=== PATIENT | female | born 1980 | race Caucasian/White ===

== ENCOUNTER 2018-04-08 11:34 | Emergency (ER) | payer SELFPAY ==
--- NOTE | 2018-04-08 12:32 | PDOC ---
Rapid Medical Evaluation Time Seen by Provider: 04/08/18 12:30 Medical Evaluation: Allergies Allergy/AdvReac Type Severity Reaction Status Date / Time No Known Drug Allergies Allergy Verified 12/03/13 16:16 04/08/18 12:30 I have performed a brief in-person evaluation of this patient. The patient presents with a chief complaint of: vaginal bleeding . , 6 weeks . Patient reports spotting since yesterday with lower abdomen and lower back pain Pertinent physical exam findings: NAD even and unlabored breathing mild lower abdominal tenderness I have ordered the following: Bhc, type and screen and cbc The patient will proceed to the ED for further evaluation.
[2018-04-08 12:33] VITALS: BP 139/74; PULSE 78; TEMP 98.2; BMI 26.4
[2018-04-08 14:26] LABS: BASO % 0.4 % (0-2.0); EOS % 1.4 % (0-4.5); HEMATOCRIT 38.2 % (32.4-45.2); HEMOGLOBIN 13.4 GM/dL (10.7-15.3); LYMPH % 31.2 % (8-40); MCH 31.4 pg (25.7-33.7); MCHC 35.2 g/dl (32.0-36.0); MEAN CELL VOLUME 89.3 fl (80-96); MEAN PLT VOLUME 7.7 fl (7.5-11.1); MONO % 5.5 % (3.8-10.2); NEUT % 61.5 % (42.8-82.8); PLATELET COUNT 289 K/MM3 (134-434); RBC 4.27 M/mm3 (3.60-5.2); RDW 13.6 % (11.6-15.6); WHITE BLOOD COUNT 8.3 K/mm3 (4.0-10.0)
[2018-04-08 14:31] LABS: URINE APPEARANCE CLEAR; URINE BILIRUBIN NEGATIVE (<2.0 mg/dL); URINE COLOR STRAW; URINE GLUCOSE (UA) NEGATIVE (NEGATIVE); URINE KETONE NEGATIVE (NEGATIVE); URINE LEUK ESTERASE NEGATIVE (NEGATIVE); URINE NITRITE NEGATIVE (NEGATIVE); URINE PROTEIN NEGATIVE (NEGATIVE); URINE UROBILINOGEN NEGATIVE mg/dL (0.2-1.0)
[2018-04-08 15:11] LABS: HCG,QUALITATIVE URINE POSITIVE
[2018-04-08 15:35] LABS: EPI CELLS RARE /HPF (FEW)
--- NOTE | 2018-04-08 15:41 | PDOC ---
History of Present Illness - General Chief Complaint: Vaginal Bleeding Stated Complaint: VAGINAL BLEEDING 6 WEEKS Time Seen by Provider: 04/08/18 12:30 History Source: Patient Exam Limitations: No Limitations - History of Present Illness Travel History: No Initial Comments: 04/08/18 15:16 37 y/o female currently 6 weeks presents to ED with complaints of vaginal spotting upon wiping since yesterday. Patient also been of mild lower abdominal cramping which he states when he to her back yesterday but denies presently. Patient states is not had an ultrasound yet this denies any vaginal discharge prior to the spotting, fever, chills, nausea or urinary complaints. Timing/Duration: reports: intermittent Quality: reports: mild, cramping Abdominal Pain Onset Location: reports: suprapubic Pain Radiation: reports: back Activities at Onset: reports: none Aggravating Factors: improves with: None Alleviating Factors: improves with: None Past History - Travel Traveled outside of the country in the last 30 days: No Close contact w/someone who was outside of country & ill: No - Past Medical History Allergies/Adverse Reactions: Allergies Allergy/AdvReac Type Severity Reaction Status Date / Time No Known Drug Allergies Allergy Verified 04/08/18 12:31 Home Medications: Ambulatory Orders Albuterol Sulfate Inhaler - [Ventolin HFA Inhaler -] 2 inh IH Q6H #1 inh Anemia: No Asthma: No Cancer: No Cardiac Disorders: No CVA: No COPD: No CHF: No Dementia: No Diabetes: No GI Disorders: No Disorders: No HTN: No Hypercholesterolemia: No Liver Disease: No Seizures: No Thyroid Disease: No - Surgical History Abdominal Surgery: No Appendectomy: No Cardiac Surgery: No Cholecystectomy: No Lung Surgery: No Neurologic Surgery: No Orthopedic Surgery: No - Immunization History Immunization Up to Date: Yes - Suicide/Smoking/Psychosocial Hx Smoking History: Never smoked Hx Alcohol Use: No Drug/Substance Use Hx: No Substance Use Type: None Hx Substance Use Treatment: No Patient Lives Alone: No Lives with/in: spouse/SO Review of Systems - Review of Systems Able to Perform ROS?: Yes Constitutional: No: Symptoms Reported HEENTM: No: Symptoms Reported Respiratory: No: Symptoms reported ABD/GI: Yes: Abdominal cramping : Yes: Discharge (vaginal spotting) Musculoskeletal: No: Symptoms Reported Integumentary: No: Symptoms Reported Neurological: No: Symptoms reported Endocrine: No: Symptoms Reported Hematologic/Lymphatic: No: Symptoms Reported *Physical Exam - Vital Signs Last Vital Signs Temp Pulse Resp BP Pulse Ox 98.2 F 78 17 139/74 100 04/08/18 12:31 04/08/18 12:31 04/08/18 12:31 04/08/18 12:31 04/08/18 12:31 - Physical Exam General Appearance: Yes: Nourished, Appropriately Dressed. No: Apparent Distress HEENT: positive: EOMI, DARSHANA, TMs Normal, Pharynx Normal. negative: Pale Conjunctivae Neck: positive: Supple Respiratory/Chest: positive: Lungs Clear, Normal Breath Sounds. negative: Respiratory Distress, Accessory Muscle Use Cardiovascular: positive: Regular Rhythm, Regular Rate. negative: Murmur Female Pelvic Exam: positive: cervical os closed. negative: adnexal tenderness , vaginal bleeding Gastrointestinal/Abdominal: positive: Normal Bowel Sounds, Soft. negative: Distended, Tenderness Extremity: positive: Normal Capillary Refill. negative: Pedal Edema Integumentary: positive: Normal Color, Warm, Moist Neurologic: positive: Motor Strength 5/5 ( ambulatory) Moderate Sedation - Procedure Monitoring Vital Signs: Procedure Monitoring Vital Signs Temperature 98.2 F 04/08/18 12:31 Pulse Rate 78 04/08/18 12:31 Respiratory Rate 17 04/08/18 12:31 Blood Pressure 139/74 04/08/18 12:31 O2 Sat by Pulse Oximetry (%) 100 04/08/18 12:31 ED Treatment Course - LABORATORY CBC & Chemistry Diagram: 04/08/18 14:09 - ADDITIONAL ORDERS Additional order review: Laboratory Results 04/08/18 04/08/18 14:00 14:00 Beta HCG, Quant 13278.8 Urine Color Straw Urine Appearance Clear Urine pH 5.0 Ur Specific [place] 1.008 L Urine Protein Negative Urine Glucose (UA) Negative Urine Ketones Negative Urine Blood 1+ H Urine Nitrite Negative Urine Bilirubin Negative Urine Urobilinogen Negative Ur Leukocyte Esterase Negative Urine HCG, Qual Positive 04/08/18 14:09 RBC 4.27 MCV 89.3 MCHC 35.2 RDW 13.6 MPV 7.7 Neutrophils % 61.5 D Lymphocytes % 31.2 D Monocytes % 5.5 Eosinophils % 1.4 Basophils % 0.4 - RADIOLOGY Radiology Studies Ordered: Category Date Time Status <14WKS US [US] Stat Ultrasound 04/08/18 13:48 Ordered TRANSVAGINAL US PREG [US] Stat Ultrasound 04/08/18 15:28 Ordered Medical Decision Making - Medical Decision Making 04/08/18 14:45 Chief complaint: Vaginal spotting upon wiping 2 since yesterday, lower abdominal cramping yesterday after urinating but denies presently approximately 6 weeks based on LMP Exam: No abdominal tenderness no CVA tenderness. Vital stable Plan: Labs, urine, ultrasound ordered 04/08/18 15:47 Laboratory Tests 04/08/18 04/08/18 04/08/18 14:00 14:00 14:00 WBC Hgb Hct Absolute Neuts (auto) Beta HCG, Quant 35259.8 Urine Color Straw Urine Appearance Clear Urine pH 5.0 Ur Specific [place] 1.008 L Urine Blood 1+ H Urine Nitrite Negative Urine Bilirubin Negative Ur Leukocyte Esterase Negative Urine HCG, Qual Positive Blood Type Pending Antibody Screen Pending 04/08/18 14:09 WBC 8.3 Hgb 13.4 Hct 38.2 Absolute Neuts (auto) 5.1 Beta HCG, Quant Urine Color Urine Appearance Urine pH Ur Specific [place] Urine Blood Urine Nitrite Urine Bilirubin Ur Leukocyte Esterase Urine HCG, Qual Blood Type Antibody Screen 04/08/18 16:28 Laboratory Tests 04/08/18 14:00 Blood Type B POSITIVE Antibody Screen Negative Ultrasound shows single live intrauterine with estimated sonographic gestational age of 5 weeks 6 days. The heart rate of 1 35 bpm. There is a small Jenniffer complex cyst in the left ovary measuring 1 cm may represent a hemorrhagic corpus luteum cyst. Follow-up as needed. *DC/Admit/Observation/Transfer Diagnosis at time of Disposition: Vaginal bleeding during - Discharge Dispostion Disposition: HOME Condition at time of disposition: Good - Referrals - Patient Instructions Printed Discharge Instructions: DI for Threatened Additional Instructions: Please continue taking vitamins as prescribed. Please up with her POLISHING MACHINE OPERATOR and take copy of ultrasound report with you. If symptoms worsen including severe abdominal pain or heavy vaginal bleeding you may return to the ED. - Post Discharge Activity
== END 2018-04-08 16:34 | disposition home or self-care (01) ==
LOC: JER 11:34
DX: O26.891 Other specified pregnancy related conditions, first trimester (principal); O20.8 Other hemorrhage in early pregnancy; Z3A.01 Less than 8 weeks gestation of pregnancy
CPT/HCPCS: 36415; 76801-TC; 76817-TC; 81003; 81015; 84702; 84703; 85025; 86850; 86900; 86901; 87086; 99281-25

== ENCOUNTER 2018-11-21 09:06 | Inpatient (IN) | payer OTHER ==
[2018-11-21] MEDS ORDERED: CITRIC ACID/SODIUM CITRATE 30 ML UNIT-DOSE CUP PO ONE (11:08)
[2018-11-21] MEDS ORDERED: ELECTROLYTE-148 SOLN 500 ML IV ONE (11:08)
[2018-11-21] MEDS ORDERED: ELECTROLYTE-148 SOLN 1,000 ML IV SCH (11:15)
--- NOTE | 2018-11-21 11:22 | HP ---
Past Medical History - Primary Care Physician PCP:: Luz Elena Loomis - Admission Chief Complaint: 38 yrs 38.6/7 weeks , previous c/s c/o bleeding, onset of UC since 4.30 AM , requests for repeat c/s History of Present Illness: care at [address] [place] [address] . wt gain 20 lbs panel 04/23/18 : B Pos , Hiv nr, Hep Bsag neg , Rpr nr, Rubella iimune, Sickle neg , pap 04/23 Nilm, hpv neg gc/ct neg 08/20/18 Quantiferon neg , , 1 hr gct 125, rpr nr 11/05/18 cbc h/h 12.3/36.9, plt 249 , HIV nr, gc/ct/neg, Gbs neg pt had refused genetic counselling referred due to LISET ayoub done for growth NT screen , & sequential neg last sono ; 10/30/18 sliup ,35.5 WKS vx, post placenta, bria 12.3, efw 6'6' History Source: Patient, Medical Record Limitations to Obtaining History: No Limitations - Past Medical History STOCKHOLDER: No: CVA, Migraine Cardiovascular: No: AFIB, HTN, Murmur Pulmonary: No: Asthma Renal/: No: UTI ...: 3 ...Para: 1 (p lftc/s 12/07/10 7'5', ? failed induction boy ) ...Term: 1 ...: 0 ...Spon : 0 ...Induced : 1 ...Multiple Gestation: 0 ...LMP: 02/22/18 ... Weeks Gestation by Dates: 38.6 ...EDC by Dates: 11/29/18 ...EDC by Sono: 11/29/18 Infectious Disease: No: AIDS, C-Diff, Herpes Zoster, HIV, MRSA, STD's, Tuberculosis, VREF Psych: No: Addictions, Anxiety, Bipolar, Depression, Panic, Psychosis, Schizophrenia, Other - Past Surgical History Past Surgical History: Yes: (12/2010) Hx Myomectomy: No Hx Transabdominal Cerclage: No - Smoking History Smoking history: Never smoked Have you smoked in the past 12 months: No - Alcohol/Substance Use Hx Alcohol Use: No History of Substance Use: reports: None Home Medications - Allergies Allergies/Adverse Reactions: Allergies Allergy/AdvReac Type Severity Reaction Status Date / Time No Known Drug Allergies Allergy Verified 11/21/18 10:16 - Home Medications Home Medications: Ambulatory Orders Ferrous Sulfate [Feosol] 325 mg PO DAILY 11/21/18 Pnv No.95/Ferrous Fum/Folic AC [ Vitamin Tablet] 1 each PO DAILY Physical Exam - Maternity Vital Signs: Vital Signs Temperature 98.2 F 11/21/18 10:20 Pulse Rate 70 11/21/18 10:20 Respiratory Rate 18 11/21/18 10:20 Blood Pressure 141/81 11/21/18 10:20 O2 Sat by Pulse Oximetry (%) Constitutional: Yes: Well Nourished Eyes: Yes: WNL HENT: Yes: WNL Neck: Yes: WNL Cardiovascular: Yes: WNL Breast(s): Yes: WNL - Abdominal Exam/OB Fundal Height: 38 Number of Fetuses: Single Presentation: Vertex Contractions: Yes Regularity: Regular (1-3 min) Intensity: Moderate Monitor Mode: External Heart Rate (range): 155 Heart Rate Location: [facility] Category: I Accelerations: Uniform Decelerations: None - Vaginal Exam/OB Vaginal Bleediing: Yes Speculum Exam: No Dilatation (cm): FT Effacement (%): 50 Amniotic Membrane Status: Intact Presentation: Vertex/Position Station: -3 (-3/-4) - Physical Exam Musculoskeletal: Yes: WNL Extremities: Yes: WNL. No: Calf Tenderness Edema: Yes Edema: LLE: 1+, RLE: 1+ Integumentary: Yes: WNL, Incision (pfannesteil incision) Deep Tendon Reflex Grade: Normal +2 ...Motor Strength: WNL Psychiatric: Yes: WNL, Alert, Oriented - Labs Lab Results: Laboratory Tests 11/21/18 11/21/18 11/21/18 11:20 11:20 11:20 WBC 8.4 Hgb 12.9 Hct 38.0 MCV 90.2 MCH 30.7 MCHC 34.0 RDW 14.7 Plt Count 228 D MPV 8.3 Absolute Neuts (auto) 6.2 Neutrophils % 73.6 Lymphocytes % 20.0 D Monocytes % 5.8 Eosinophils % 0.4 Basophils % 0.2 PT with INR 10.30 INR 0.87 PTT (Actin FS) 29.3 Sodium 137 Potassium 5.0 Chloride 106 Carbon Dioxide 23 Anion Gap 8 BUN 12.0 Creatinine 0.6 Random Glucose 76 Calcium 8.9 Blood Type 11/21/18 11:20 WBC Hgb Hct MCV MCH MCHC RDW Plt Count MPV Absolute Neuts (auto) Neutrophils % Lymphocytes % Monocytes % Eosinophils % Basophils % PT with INR INR PTT (Actin FS) Sodium Potassium Chloride Carbon Dioxide Anion Gap BUN Creatinine Random Glucose Calcium Blood Type B POSITIVE Hemorrhage Risk Assessment - Risk Factors Medium Risk Factors: Yes: Prior , uterine surgery,or multiple laparotomies Risk Score: 1 Risk Level: Medium Risk Problem List - Problems (1) with 38 completed weeks gestation Code(s): Z3A.38 - 38 WEEKS GESTATION OF (2) Previous section Code(s): Z98.891 - HISTORY OF UTERINE SCAR FROM PREVIOUS SURGERY (3) Labor established Code(s): TEK7964 - (4) First stage of labor established Code(s): TPH8009 - (5) AMA (advanced maternal age) multigravida 35+ Code(s): O09.529 - SUPERVISION OF ELDERLY MULTIGRAVIDA, UNSPECIFIED TRIMESTER Assessment/Plan 38 yrs 38.6 weeks in early labor, bleeding light , gbs neg, requests for repeat c/sec . Plan Repeat LFTC/Section
[2018-11-21 11:46] LABS: BASO % 0.2 % (0-2.0); EOS % 0.4 % (0-4.5); HEMOGLOBIN 12.9 GM/dL (10.7-15.3); MCH 30.7 pg (25.7-33.7); MEAN CELL VOLUME 90.2 fl (80-96); MEAN PLT VOLUME 8.3 fl (7.5-11.1); MONO % 5.8 % (3.8-10.2); NEUT % 73.6 % (42.8-82.8); PLATELET COUNT 228 K/MM3 (134-434); RBC 4.21 M/mm3 (3.60-5.2); RDW 14.7 % (11.6-15.6); WHITE BLOOD COUNT 8.4 K/mm3 (4.0-10.0)
[2018-11-21] MEDS ORDERED: OXYTOCIN 20 UNITS in 0.9% NS 20 UNIT/1,000 ML INFUS.BAG IV ONE ×2 (11:58→15:19)
[2018-11-21 12:02] LABS: CALCIUM 8.9 mg/dL (8.5-10.1); CREATININE 0.6 mg/dL (0.55-1.3)
[2018-11-21] MEDS ORDERED: ceFAZolin SODIUM 1 GM VIAL ONE (12:05)
[2018-11-21 12:28] LABS: INR 0.87 (0.83-1.09); PROTHROMBIN TIME (PATIENT) 10.3 SEC (9.7-13.0)
[2018-11-21] MEDS ORDERED: ONDANSETRON 4 MG/2 ML VIAL IVPUSH PRN (12:30)
[2018-11-21 12:31] LABS: ACTIVATED PTT 29.3 SECONDS (25.2-36.5)
[2018-11-21] MEDS ORDERED: METHYLERGONOVINE MALEATE 0.2 MG/1 ML AMP IM PRN (13:05)
[2018-11-21] MEDS ORDERED: oxyCODONE HCL 5 MG TABLET PO PRN (13:05)
[2018-11-21] MEDS ORDERED: IBUPROFEN 800 MG/8 ML IJ IVPB PRN (13:05)
[2018-11-21] MEDS ORDERED: OXYTOCIN 20 UNITS in 0.9% NS 20 UNIT/1,000 ML INFUS.BAG IV SCH (13:15)
--- NOTE | 2018-11-21 13:16 | PN ---
Delivery - Delivery Section: Repeat, Low Flap Transverse Type of Anesthesia: Spinal EBL (cc): 600 (100) Delivery, Single - Stages of Labor Date 1st Stage Initiatied: 11/21/18 Time 1st Stage Initiated: 04:30 Date of Delivery: 11/21/18 Time of Delivery: 12: Date Placenta Delivered: 11/21/18 Time Placenta Delivered: : Placenta: Yes: Manual Removal, Uterine Exploration - Condition of Cutter Operator Brick/Form Tamper Operator Present: Yes Name: Gladys Montgomery Infant Gender: Female (meconium medium) Weight: 7 lb 4 oz Position: Right, OT Total Hours ROM (Hrs/Mins): 2 min - 1 Minute Total Score: 9 5 Minutes Total Score: 9 - Feeding Plan Initial Plan: Elected not to breastfeed exclusively throughout hospitalization Remarks - Remarks Remarks: Indication 38.6/7 weeks in labor , previous c/s , requests repeat c/s 38 yrs , , gbs neg . pnc at , [facility] Intraop course uneventful 2 gm Iv ancef given
--- NOTE | 2018-11-21 13:22 | OP ---
Operative Note - Note: Operative Date: 11/21/18 Pre-Operative Diagnosis: 38.6/7 weeks ,in labor , previous c/s ,requests repeat c/s Operation: Repeat LFTC/Section Findings: tob 12.19 PM , baby Girl, Rot position, 9/9 , 7'4'wt, 19"ht both tubes & ovaries normal Surgeon: Luz Elena Loomis Visual Inspector: Tan Johnson Anesthesiologist/DISPATCHER MOTOR VEHICLE: Verna Washburn Anesthesia: Spinal Specimens Removed: cord segment for blood gas. cord blood. placenta Estimated Blood Loss (mls): 600 Drains, Volume Out (mls): 100 (katlyn color, collins output) Fluid Volume Replaced (mls): 1,000 (2gm iv Ancef ) Operative Report Dictated: Yes
--- NOTE | 2018-11-21 14:14 | OP ---
DATE OF OPERATION: 11/21/2018 PREOPERATIVE DIAGNOSIS: At 38-6/7 weeks, in labor, previous section, requests repeat section. OPERATION DONE: Repeat low-flap transverse section. POSTOPERATIVE DIAGNOSIS: At 38-6/7 weeks, in labor, previous section, requests repeat section. Meconium stained Amniotic fluid . SURGEON: Luz Elena Loomis MD DRIVE AWAY DRIVER: BETTY Galvez ANESTHESIOLOGIST: Verna Washburn MD ANESTHESIA: Spinal. RESOURCE MANAGEMENT SPECIALIST: Gladys Montgomery MD FINDINGS: This is a 38-year-old, 3, para 1011, with onset of labor since 4:30, presents with generalized bleeding noted and patient is sebastien between 1 to 3 minutes regularly, fingertip, and station -3 to -4, and patient requests for repeat section. Postoperatively, meconium fluid, medium thickness of meconium; and baby girl, 7 pounds 4 ounces in weight, 9 and 9. PROCEDURE: The patient was taken to the operating room table. She was given spinal anesthesia prior to that. Chacon catheter was placed. Abdomen was shaved and prepped. Patient was in supine position. Abdomen was painted and draped in usual manner. Pfannenstiel incision was made from the previous scar. Skin, subcutaneous tissue, anterior rectus sheath was incised transversely. Bleeding points were clamped and cauterized. Rectus muscle was from the rectus sheath. Parietal peritoneum was opened vertically. Lower flap parietal peritoneum was incised transversely. Bladder was pushed down. Lower uterine segment was very thin and it was incised transversely. Amniotic fluid was meconium, which was medium-thick meconium. Immediate suction was done after the delivery of the baby from ROT position, baby girl, and cord was clamped, cut. Baby was handed over to the parts salesman. Baby's weight subsequently 7 pounds 4 ounces. Cord segment was given for the cord blood gas and the cord blood was collected. Placenta was removed completely with the membranes. Uterine cavity was cleaned. Then uterine incision was closed in 2 layers, first layer was closed with single suture, second layer was closed with a Biosyn 0 continuous intermittently locking sutures taken, and then parietal peritoneum also was closed with a Biosyn 0 suture. Hemostasis was verified. Both tubes and ovaries were normal. Sponge, instrument, needle count was correct. Then closure of the abdomen was done. Parietal peritoneum was closed with Biosyn 0 suture. Muscles were approximated together with a Biosyn 0 suture. Hemostasis was checked in the upper angle of the incision. Then hemostasis was checked underneath the rectus sheath flaps. Rectus sheath was closed with a Vicryl 0 continuous suture. Hemostasis was again verified in subcutaneous tissue. The subcutaneous tissue was closed with a 2-0 Vicryl suture, continuous sutures were taken, and skin was approximated with yael. Pressure dressing was given. Blood clots were removed from the vagina. Estimated blood loss was 600 mL. Intraoperative urine output was 100 mL katlyn color. She received 2 g of IV Ancef prior to the incision. Laura [id number] MTDD
[2018-11-21] MEDS: CEFAZOLIN 1 GM/D5W 1 GM/50 ML BAG IVPB SCH (18:36)
[2018-11-22] MEDS: CEFAZOLIN 1 GM/D5W 1 GM/50 ML BAG IVPB SCH ×2 (01:26→09:16)
--- NOTE | 2018-11-22 06:27 | PN ---
Progress Note (short form) - Note Progress Note: pod 1 s/p repeat c/s, doing well , passing gas CBC, BMP 11/21/18 11:20 11/21/18 11:20 Last Vital Signs Temp Pulse Resp BP Pulse Ox 98.8 F 75 18 111/72 99 11/22/18 06:00 11/22/18 06:00 11/22/18 06:00 11/22/18 06:00 11/21/18 15:00 abdomen soft, no distension, no cva incision dry, clean no calf tenderness lochia mild plan ambulate , cbc, advance diet
[2018-11-22] MEDS: ACETAMINOPHEN 325 MG TABLET (FP) PO PRN ×2 (08:08→20:00)
[2018-11-22] MEDS: IBUPROFEN 600 MG TABLET (FP) PO PRN ×2 (08:08→20:01)
[2018-11-22] MEDS: PRENATAL VITAMINS W/ FOLIC ACID TABLET (FP) PO SCH (09:16)
[2018-11-22 09:32] LABS: BASO % 0.2 % (0-2.0); EOS % 0.6 % (0-4.5); HEMATOCRIT 37.6 % (32.4-45.2); HEMOGLOBIN 12.8 GM/dL (10.7-15.3); MCH 30.9 pg (25.7-33.7); MEAN PLT VOLUME 8.5 fl (7.5-11.1); MONO % 6.8 % (3.8-10.2); NEUT % 77.4 % (42.8-82.8); PLATELET COUNT 218 K/MM3 (134-434); RBC 4.13 M/mm3 (3.60-5.2); RDW 15.2 % (11.6-15.6); WHITE BLOOD COUNT 9.4 K/mm3 (4.0-10.0)
[2018-11-22] MEDS: ENOXAPARIN NA (PORCINE) 40 MG/0.4 ML DISP.SYRIN SQ SCH (10:38)
[2018-11-22] MEDS ORDERED: BISACODYL 10 MG SUPP.RECT RC PRN (13:05)
--- NOTE | 2018-11-22 14:40 | PN ---
Progress Note (short form) - Note Progress Note: Anesthesia POD#1 S/P Repeat under Spinal and Duramorph VSS, no N/V,pain is mild,legs fully recovered. Ana Cruz MD.
--- NOTE | 2018-11-22 14:53 | DS ---
Physical Exam-INDUSTRIAL TWISTING MACHINE OPERATOR Vital Signs: Vital Signs Temperature 98.6 F 11/22/18 09:00 Pulse Rate 78 11/22/18 09:00 Respiratory Rate 18 11/22/18 12:00 Blood Pressure 129/78 11/22/18 09:00 O2 Sat by Pulse Oximetry (%) 99 11/21/18 15:00 Selected Entries 11/24/18 07:20 Temperature 98.2 F Pulse Rate 82 Blood Pressure 137/70 Constitutional: Yes: Well Nourished Eyes: Yes: WNL HENT: Yes: WNL Neck: Yes: WNL Cardiovascular: Yes: WNL Respiratory: Yes: WNL Gastrointestinal: Yes: WNL, Normal Bowel Sounds, Other Renal/: Yes: WNL ....Post : Yes: Uterus firm (bvelow umblicus), Uterus non-tender Breast(s): Yes: WNL (not enorged , soft , BF) Musculoskeletal: Yes: WNL Extremities: Yes: WNL. No: Calf Tenderness Edema: LLE: 1+, RLE: 1+ Wound/Incision: Yes: Clean/Dry, Well Approximated, [place] Intact, Open to air. No: Draining, Reddened, Bleeding Neurological: Yes: WNL, Alert, Oriented ...Motor Strength: WNL Psychiatric: Yes: WNL, Alert, Oriented Labs: CBC, BMP 11/22/18 08:05 11/21/18 11:20 Laboratory Tests 11/24/18 06:30 WBC 8.4 RBC 3.61 Hgb 11.1 Hct 32.7 Plt Count 238 Delivery - Delivery Section: Repeat, Low Flap Transverse Type of Anesthesia: Spinal Episiotomy/Laceration: None EBL (cc): 600 Delivery, Single - Stages of Labor Date 1st Stage Initiatied: 11/21/18 Time 1st Stage Initiated: 04:30 Date of Delivery: 11/21/18 Time of Delivery: 12:19 Time Placenta Delivered: 12:21 Placenta: Yes: Manual Removal, Uterine Exploration - Condition of Sociology Adjunct Instructor/Clinical Tech Present: Yes Name: Gladys Montgomery Infant Gender: Female Weight: 7 lb 4 oz Position: Right, OT Total Hours ROM (Hrs/Mins): 0/2 - 1 Minute Total Score: 9 5 Minutes Total Score: 9 - Feeding Plan Initial Plan: Elected not to breastfeed exclusively throughout hospitalization Remarks - Remarks Remarks: Indication 38.6/7 weeks in labor , previous c/s , requests repeat c/s 38 yrs , , gbs neg . pnc at 2, [facility] Intraop course uneventful 2 gm Iv ancef given pt will rtc for yael removal she was discharged by Dr wagoner on 11/24/18 Discharge Summary Reason For Visit: REPEAT Current Active Problems AMA (advanced maternal age) multigravida 35+ (Acute) First stage of labor established (Acute) Labor established (Acute) with 38 completed weeks gestation (Acute) Previous section (Acute) Condition: Stable - Instructions Diet, Activity, Other Instructions: NEXT PHYSICIAN APPOINTMENT: Be certain to call for a one (1) week appointment, unless otherwise directed. RtC Sunday for [place]ber[place] removal with Dr. Wagoner at 11AM Call Clinic or got to Emergency Dept if you have any of the following: Heavy vaginal bleeding Painful urination Leg pain Unusual odor noted to vaginal bleeding High fever Red streaking noted on breast If redness or drainage noted to incision call M.D. Referrals: Faiza Wagoner MD [Staff Physician] - Disposition: HOME - Home Medications Comprehensive Discharge Medication List: Ambulatory Orders Ferrous Sulfate [Feosol] 325 mg PO DAILY 11/21/18 Pnv No.95/Ferrous Fum/Folic AC [ Vitamin Tablet] 1 each PO DAILY Acetaminophen [Tylenol .Regular Strength -] 500 mg PO Q4H PRN #30 tablet Ferrous Sulfate [Feosol] 325 mg PO DAILY #0 tab 11/22/18 Ibuprofen [Motrin -] 600 mg PO Q4H PRN #30 tablet 11/22/18 Vitamins (Sjr) - 1 tab PO DAILY tablet 11/22/18
[2018-11-22] MEDS: SIMETHICONE 80 MG TAB.CHEW (FP) PO PRN (20:00)
[2018-11-22] MEDS: SENNOSIDES/DOCUSATE COMBO (SENNA PLUS) TABLET (UD) PO PRN (20:01)
[2018-11-22] MEDS: FERROUS SO4 325 MG TABLET (FP) PO SCH (21:13)
[2018-11-23] MEDS: ACETAMINOPHEN 325 MG TABLET (FP) PO PRN ×2 (09:08→18:38)
[2018-11-23] MEDS: FERROUS SO4 325 MG TABLET (FP) PO SCH ×2 (09:09→21:22)
[2018-11-23] MEDS: PRENATAL VITAMINS W/ FOLIC ACID TABLET (FP) PO SCH (09:09)
[2018-11-23] MEDS: IBUPROFEN 600 MG TABLET (FP) PO PRN ×2 (09:09→18:39)
[2018-11-23] MEDS: ENOXAPARIN NA (PORCINE) 40 MG/0.4 ML DISP.SYRIN SQ SCH (09:10)
--- NOTE | 2018-11-23 10:49 | PN ---
Post Progress Note - Subjective Subjective: Pain controlled. No fevers/chills. No N/V. Ambulating. Post Day: 2 Type of Delivery: Repeat C/S Vital Signs: Vital Signs Temperature 98.6 F 11/23/18 09:56 Pulse Rate 73 11/23/18 09:56 Respiratory Rate 18 11/23/18 09:56 Blood Pressure 112/65 11/23/18 09:56 O2 Sat by Pulse Oximetry (%) 99 11/21/18 15:00 Uterus: Yes: Fundus Firm, Fundus below umbilicus Incision: Yes: Dressing dry and intact Abdomen/GI: Yes: Abdomen soft, Passing flatus, Tolerating PO Lochia: Yes: Rubra Lochia, amount: Small Extremities: Yes: Calves non-tender Perineum: Yes: Intact - Labs Labs: CBC WBC 9.4 K/mm3 (4.0-10.0) 11/22/18 08:05 RBC 4.13 M/mm3 (3.60-5.2) 11/22/18 08:05 Hgb 12.8 GM/dL (10.7-15.3) 11/22/18 08:05 Hct 37.6 % (32.4-45.2) 11/22/18 08:05 MCV 91.0 fl (80-96) 11/22/18 08:05 MCH 30.9 pg (25.7-33.7) 11/22/18 08:05 MCHC 34.0 g/dl (32.0-36.0) 11/22/18 08:05 RDW 15.2 % (11.6-15.6) 11/22/18 08:05 Plt Count 218 K/MM3 (134-434) 11/22/18 08:05 MPV 8.5 fl (7.5-11.1) 11/22/18 08:05 Absolute Neuts (auto) 7.2 K/mm3 (1.5-8.0) 11/22/18 08:05 Neutrophils % 77.4 % (42.8-82.8) 11/22/18 08:05 Lymphocytes % 15.0 % (8-40) D 11/22/18 08:05 Monocytes % 6.8 % (3.8-10.2) 11/22/18 08:05 Eosinophils % 0.6 % (0-4.5) 11/22/18 08:05 Basophils % 0.2 % (0-2.0) 11/22/18 08:05 Nucleated RBC % 0 % (0-0) 11/22/18 08:05 Assessment/Plan 38yo s/p RLTCS, POD#2 Routine PP care OOB, ambulate Labs reviewed D/C to home POD#3 Mike Hendrix MD
[2018-11-23] MEDS: SIMETHICONE 80 MG TAB.CHEW (FP) PO PRN (18:38)
[2018-11-23] MEDS: SENNOSIDES/DOCUSATE COMBO (SENNA PLUS) TABLET (UD) PO PRN (21:23)
[2018-11-24 07:42] LABS: BASO % 0.2 % (0-2.0); EOS % 1.6 % (0-4.5); HEMATOCRIT 32.7 % (32.4-45.2); HEMOGLOBIN 11.1 GM/dL (10.7-15.3); MCH 30.8 pg (25.7-33.7); MEAN CELL VOLUME 90.7 fl (80-96); MEAN PLT VOLUME 8.4 fl (7.5-11.1); MONO % 6.6 % (3.8-10.2); NEUT % 69.6 % (42.8-82.8); PLATELET COUNT 238 K/MM3 (134-434); RBC 3.61 M/mm3 (3.60-5.2); RDW 14.8 % (11.6-15.6); WHITE BLOOD COUNT 8.4 K/mm3 (4.0-10.0)
[2018-11-24] MEDS: IBUPROFEN 600 MG TABLET (FP) PO PRN (08:15)
[2018-11-24] MEDS: SIMETHICONE 80 MG TAB.CHEW (FP) PO PRN (08:16)
[2018-11-24] MEDS: ACETAMINOPHEN 325 MG TABLET (FP) PO PRN (08:16)
[2018-11-24 08:44] VITALS: BP 137/70; PULSE 82; TEMP 98.2
[2018-11-24] MEDS: PRENATAL VITAMINS W/ FOLIC ACID TABLET (FP) PO SCH (09:17)
[2018-11-24] MEDS: ENOXAPARIN NA (PORCINE) 40 MG/0.4 ML DISP.SYRIN SQ SCH (09:17)
[2018-11-24] MEDS: FERROUS SO4 325 MG TABLET (FP) PO SCH (09:17)
--- NOTE | 2018-11-27 17:32 | PATH ---
Surgical Pathology Report Patient Name: CUONG FRANZ Med. Rec. #: [id number] /Age/Gender: 1980 (Age: 38) / F Account: [id number] Location: [facility] OBS/REGIONAL GUIDE Taken: 11/21/2018 Received: 11/22/2018 Reported: 11/27/2018 Physicians: Luz Elena Loomis M.D. Specimen(s) Received PLACENTA Clinical History 38.6 weeks, previously in labor, advanced maternal age Final Diagnosis PLACENTA: THIRD TRIMESTER PLACENTA. TRIVASCULAR CORD. MEMBRANES WITH NO DIAGNOSTIC ABNORMALITIES. Electronically Signed Chicho Johnson M.D. Gross Description The specimen is received fresh labeled placenta and is a 459 gram, 18 x14.5 x 2.5cm. placenta with attached membranes and umbilical cord. The attached membranes are glistening, translucent, and insert marginally. The umbilical cord measures 23 cm. in length and averages 1.5 cm. in diameter. The cord inserts centrally, 3.5centimeter to the nearest margin. No true knots or strictures are identified. Cut surface of the umbilical cord reveals 3 vessels. Sectioning reveals red-brown, spongy parenchyma. No lesions are identified. Industrial Furnace Fabricator sections are submitted in three cassettes as follows: 1- membrane rolls and umbilical cord; 2-3- full thickness sections of placenta KWS/11/25/2018 jaki/11/25/2018
== END 2018-11-24 12:40 | disposition home or self-care (01) | DRG 540 ==
LOC: JDEL 09:06 → JLDR 10:20 → J3W 17:25
PROVIDERS: ADMIT Obstetrics & Gynecology; ATTEND Obstetrics & Gynecology
PROC: 10D00Z1 Extraction of Products of Conception, Low, Open Approach (ICD-10-PCS; principal; 2018-11-21)
DX: O34.211 Maternal care for low transverse scar from previous cesarean delivery (principal); N85.8 Other specified noninflammatory disorders of uterus; Z3A.38 38 weeks gestation of pregnancy; Z37.0 Single live birth
CPT/HCPCS: 36415; 36600; 80048; 82803; 85025; 85610; 85730; 86593; 86850; 86900; 86901; 88307-TC

== ENCOUNTER 2021-02-26 23:39 | Emergency (ER) | payer OTHER ==
[2021-02-26 23:50] VITALS: BP 127/85; PULSE 84; TEMP 97.7; BMI 28.3
== END 2021-02-27 01:42 | disposition home or self-care (01) ==
LOC: JER 23:39
DX: R09.81 Nasal congestion (principal); Z11.52 Encounter for screening for COVID-19
CPT/HCPCS: 87804; 87807; 99283-25; C9803; U0003; U0005

== ENCOUNTER 2021-03-07 20:48 | Emergency (ER) | payer OTHER ==
[2021-03-07 21:26] VITALS: BP 130/78; PULSE 86; TEMP 98.9; BMI 30.2
[2021-03-08] MEDS ORDERED: FLUTICASONE PROP 0.05% 16 GM NASAL SPRAY NS ONE (00:50)
[2021-03-08] MEDS ORDERED: ACETAMINOPHEN 500 MG TABLET (FP) PO ONE (00:51)
[2021-03-08] MEDS ORDERED: ACETAMINOPHEN 500 MG TABLET (FP) ONE (01:24)
== END 2021-03-08 01:34 | disposition home or self-care (01) ==
LOC: JER 20:48
DX: R09.81 Nasal congestion (principal); J06.9 Acute upper respiratory infection, unspecified
CPT/HCPCS: 99283-25

== ENCOUNTER 2021-03-08 04:14 | Emergency (ER) | payer OTHER ==
[2021-03-08 05:06] VITALS: BP 117/78; PULSE 94; TEMP 97.3; BMI 36.3
[2021-03-08] MEDS ORDERED: OXYMETAZOLINE 0.05% NASAL SOLUTION 15 ML BOTTLE NS PRN (06:02)
== END 2021-03-08 06:30 | disposition home or self-care (01) ==
LOC: JER 04:14
DX: R09.81 Nasal congestion (principal)
CPT/HCPCS: 99283-25

== ENCOUNTER 2022-01-20 20:23 | Emergency (ER) | payer OTHER ==
[2022-01-20 20:27] VITALS: BP 155/91; PULSE 78; RESP 18; TEMP 98.7; BMI 31.0
[2022-01-20] MEDS ORDERED: diphenhydrAMINE HCL 25 MG CAPSULE (FP) PO ONE ×2 (22:05→22:13)
[2022-01-20] MEDS ORDERED: DEXAMETHASONE 4 MG TABLET (FP) PO ONE (22:07)
[2022-01-20] MEDS ORDERED: DEXAMETHASONE 4 MG TABLET (FP) ONE (22:13)
[2022-01-21] MEDS ORDERED: IBUPROFEN 600 MG TABLET (FP) PO ONE (00:04)
== END 2022-01-21 00:28 | disposition home or self-care (01) ==
LOC: JER 20:23
DX: G43.909 Migraine, unspecified, not intractable, without status migrainosus (principal)
CPT/HCPCS: 0241U-QW; 70450-TC; 99284-25

== ENCOUNTER 2022-01-21 19:34 | Emergency (ER) | payer OTHER ==
[2022-01-21 19:53] VITALS: RESP 18; TEMP 98.3; BMI 27.9
[2022-01-21] MEDS ORDERED: MECLIZINE HCL 25 MG TABLET (FP) PO ONE (20:22)
[2022-01-21] MEDS ORDERED: LACTATED RINGERS SOLUTION 1000 ML INFUS.BAG IV ONE (20:22)
[2022-01-21] MEDS ORDERED: MECLIZINE HCL 25 MG TABLET (FP) ONE (20:56)
[2022-01-21 21:39] LABS: BASO % 0.3 % (0-2.0); EOS % 0.1 % (0-4.5); HEMATOCRIT 37.7 % (32.4-45.2); HEMOGLOBIN 12.8 GM/dL (10.7-15.3); LYMPH % 22.6 % (8-40); MCH 30.1 pg (25.7-33.7); MEAN CELL VOLUME 88.6 fl (80-96); MEAN PLT VOLUME 7.5 fl (7.5-11.1); MONO % 5.8 % (3.8-10.2); NEUT % 71.2 % (42.8-82.8); PLATELET COUNT 351 10^3/uL (134-434); RBC 4.25 M/mm3 (3.60-5.2); RDW 13.4 % (11.6-15.6); WHITE BLOOD COUNT 10.4 K/mm3 (4.0-10.0)
[2022-01-21 22:04] LABS: BLOOD UREA NITROGEN 14.6 mg/dL (7-18); CALCIUM 8.7 mg/dL (8.5-10.1)
[2022-01-21 22:09] LABS: BILIRUBIN,TOTAL 0.6 mg/dL (0.2-1); TOT PROT 7.8 g/dl (6.4-8.2)
[2022-01-21 22:43] LABS: CREATININE 0.6 mg/dL (0.55-1.3)
[2022-01-22 01:18] VITALS: BP 146/80; PULSE 88
== END 2022-01-22 01:18 | disposition home or self-care (01) ==
LOC: JER 19:34
DX: R42 Dizziness and giddiness (principal)
CPT/HCPCS: 36415; 71046-TC-FY; 80053; 84703; 85025; 93005; 93010; 99285-25